=== PATIENT | female | born 1965 | race African-American/Black ===

== ENCOUNTER 2018-11-27 13:11 | Inpatient (IN) | payer OTHER ==
[2018-11-27 15:10] LABS: BASO % 0.6 % (0.0-2.0); EOS % 0.3 % (0.0-4.0); HEMOGLOBIN 14.7 g/dL (11.0-16.0); LYMPH # 1.6 K/uL (1.0-4.3); LYMPH % 27.1 % (20.0-40.0); MEAN CELL VOLUME 88.7 fL (81.0-99.0); MEAN CORPUSCULAR HEMOGLOBIN 30.3 pg (27.0-31.0); MEAN CORPUSCULAR HGB CONC 34.1 g/dL (33.0-37.0); MEAN PLATELET VOLUME 10.1 fL (7.2-11.7); MONO # 0.4 K/uL (0.0-0.8); MONO % 6.3 % (0.0-10.0); NEUT # 3.9 K/uL (1.8-7.0); NEUT % 65.7 % (50.0-75.0); RBC 4.84 Mil/uL (3.80-5.20); RED CELL DISTRIBUTION WIDTH 13.7 % (11.5-14.5); WHITE BLOOD COUNT 5.9 K/uL (4.8-10.8)
--- NOTE | 2018-11-27 15:18 | C.PDOC ---
History Of Present Illness 53 year old female presents to the emergency department status-post being diagnosed with hypothyroidism four days ago. Patient reports that recently she has been having shortness of breath, dyspnea on exertion, and paroxysmal nocturn al dyspnea which since onset has progressively worsened. Patient states that her hypothyroidism medication has not improved her symptoms. She states that she wakes up short of breath in the middle of the night feeling hot, having to turn off the heat and open the windows despite the weather being cold. Patient states that she has generalized weakness due to not being able to sleep at night, and feels aches in her muscles. She denies leg swelling, cough, fever, and recent travel. She states that she traveled to [facility] in May 2018, where she felt she got sick but recovered upon returning to the [facility]. Patient's PMD is Dr. Glen Diego, and the patient states that she is scheduled to see Dr. Jesus Manuel Landaverde (cardiology) on 12-09-18. Patient denies surgical history, tobacco, alcohol, and drug use. Patient reports a family history of hypertension. Time Seen by Provider: 11/27/18 14:06 Chief Complaint (Nursing): Palpitations History Per: Patient History/Exam Limitations: no limitations Onset/Duration Of Symptoms: Days (4) Current Symptoms Are (Timing): Worse Quality: Other (shortness of breath, dyspnea) Exacerbating Factors: Exertion Past Medical History Reviewed: Historical Data, Nursing Documentation, Vital Signs Vital Signs: Last Vital Signs Temp 97.7 F 11/27/18 13:18 Pulse 104 H 11/27/18 13:18 Resp 22 11/27/18 13:18 BP 123/78 11/27/18 13:18 Pulse Ox 100 11/27/18 13:18 - Medical History PMH: Hyperthyroidism Surgical History: No Surg Hx Family History: States: No Known Family Hx - Social History Hx Alcohol Use: No Hx Substance Use: No Review Of Systems Except As Marked, All Systems Reviewed And Found Negative. Constitutional: Positive for: Weakness. Negative for: Fever Cardiovascular: Positive for: Paroxysmal Noc. Dyspnea Respiratory: Positive for: Shortness of Breath, SOB with Excertion. Negative for: Cough Musculoskeletal: Negative for: Other (leg swelling) Physical Exam - Physical Exam Appears: Non-toxic, No Acute Distress Skin: Warm, Dry Head: Normacephalic, Tenderness Eye(s): bilateral: PERRL, EOMI Oral Mucosa: Moist Throat: No Erythema, No Exudate Neck: Normal ROM, Trachea Midline Lymphatic: No Adenopathy Chest: Symmetrical, No Tenderness Cardiovascular: Rhythm Regular, No Murmur Respiratory: Rales (at the bases), No Rhonchi, No Wheezing Gastrointestinal/Abdominal: Soft, No Tenderness Back: Normal Inspection, No Decreased ROM Extremity: Swelling (trace bilateral lower leg edema) Neurological/Psych: Oriented x3, Normal Motor ED Course And Treatment - Laboratory Results Result Diagrams: 11/27/18 14:59 11/27/18 14:59 ECG: Interpreted By Me, Viewed By Me ECG Rhythm: Sinus Rhythm, L BBB, ST/T Changes (appropriate t-wave distortion) O2 Sat by Pulse Oximetry: 100 (RA) Pulse Ox Interpretation: Normal Medical Decision Making Medical Decision Making: Plan: EKG Chemistry Hematology CXR Impression: Shortness of breath Differential: Heart failure, fluid overload, bronchitis. 15:55 Patient's bloodwork demonstates elevated Pro-BNP. Patient's X-ray demonstrates cardiomegaly and questionable infiltrate in the right lower lobe. Dr. Jesus Manuel Landaverde rim turning finisher advises Echo and Lasix for treatment of heart failure. Case discussed with Dr. Baum admitting for Dr. Glen Diego. Disposition Counseled Patient/Family Regarding: Studies Performed, Diagnosis - Disposition Disposition Time: 15:55 Condition: FAIR - Clinical Impression Clinical Impression: Heart failure - Scribe Statement The provider has reviewed the documentation as recorded by the Scribe (Saúl Nortonqvi) Provider Attestation: All medical record entries made by the Scribe were at my direction and personally dictated by me. I have reviewed the chart and agree that the record accurately reflects my personal performance of the history, physical exam, medical decision making, and the department course for this patient. I have also personally directed, reviewed, and agree with the discharge instructions and disposition.
[2018-11-27 15:22] LABS: ALB/GLOB RATIO 1.6 (1.0-2.1); ALBUMIN 4.3 g/dL (3.5-5.0); ALT/SGPT 110 U/L (9-52); AST/SGOT 74 U/L (14-36); BLOOD UREA NITROGEN 16 mg/dL (7-17); CALCIUM 9.4 mg/dl (8.6-10.4); GFR NON-AFRICAN AMERICAN > 60
--- NOTE | 2018-11-27 15:23 | RAD ---
Date of service: 11/27/2018 HISTORY: SOB COMPARISON: No prior. TECHNIQUE: Chest PA and lateral FINDINGS: LUNGS: Small patchy opacity at the right base just above the right hemidiaphragm. Nonspecific. Possible early pneumonia. Rule out neoplasm. Follow-up advised to clearing. PLEURA: No significant pleural effusion identified. No pneumothorax apparent. CARDIOVASCULAR: No aortic atherosclerotic calcification present. Normal cardiac size. No pulmonary vascular congestion. OSSEOUS STRUCTURES: No significant abnormalities. VISUALIZED UPPER ABDOMEN: Normal. OTHER FINDINGS: None. IMPRESSION: Small patchy opacity at right lung base. Possible early pneumonia. Rule out neoplasm. Follow-up to clearing advised.
[2018-11-27 15:25] LABS: PROTHROMBIN TIME 11.1 SECONDS (9.7-12.2)
[2018-11-27 15:33] LABS: B-TYPE NATRIURETIC PEPTIDE 10500 pg/mL (0-900)
--- NOTE | 2018-11-27 16:32 | CT ---
Date of service: 11/27/2018 PROCEDURE: CT Chest without contrast HISTORY: RIGHT sided pneumonia v neoplasm COMPARISON: None available. TECHNIQUE: Contiguous axial images were obtained through the chest without intravenous contrast enhancement. Sagittal and coronal reconstructions were performed. Radiation dose (DLP): 315.64 mGy-cm. This CT exam was performed using one or more of the following dose reduction techniques: Automated exposure control, adjustment of the mA and/or kV according to patient size, and/or use of iterative reconstruction technique. FINDINGS: LUNGS: Minimal subsegmental atelectasis in the right lower lobe, right middle lobe and lingula. Minimal dependent atelectasis posterior aspect right upper lobe. No infiltrate. No pulmonary mass. MEDIASTINUM: Unremarkable thoracic aorta. No aneurysm. Mild cardiomegaly. Trace pericardial effusion. Main pulmonary artery unremarkable. No vascular congestion. No lymphadenopathy. No aortic atherosclerotic calcification or mural plaque present. PLEURA: Bilateral mild pleural effusion, right greater than left. No pneumothorax BONES: No fracture. No destructive lesion. UPPER ABDOMEN: There is vague hazy increased density about the head and body of the pancreas which may reflect early acute pancreatitis. No peripancreatic fluid collection. No pancreatic mass appreciated on this noncontrast examination. No evidence of pancreatic ductal dilatation. Please correlate with clinical and laboratory evaluation. Trace ascites noted. OTHER FINDINGS: None. IMPRESSION: Multifocal mild subsegmental atelectasis. No acute infiltrate. Bilateral mild pleural effusion. Mild cardiomegaly and trace pericardial effusion. Possible early/mild acute pancreatitis of the head and body of the pancreas. Please correlate with clinical and laboratory evaluation. Trace ascites.
[2018-11-27 19:35] VITALS: RESP 20
[2018-11-28] MEDS: Levothyroxine 25 MCG TAB PO SCH (06:11)
[2018-11-28] MEDS: Enoxaparin 40 mg Syringe SC SCH (10:46)
[2018-11-28] MEDS: Metoprolol Succinate 12.5 mg XL Tab PO SCH (13:37)
[2018-11-28 14:38] LABS: TROPONIN I 0.012 ng/mL (0.00-0.120)
[2018-11-28 14:55] LABS: HEPATITIS B SURFACE AG Negative (NEGATIVE)
[2018-11-28 14:57] LABS: T3 1.84 nmol/L (1.49-2.60)
[2018-11-28 15:00] LABS: HEPATITIS A IGM NEGATIVE (NEGATIVE); HEPATITIS B CORE AB NEGATIVE (NEGATIVE)
[2018-11-28 15:12] LABS: HEPATITIS C ANTIBODY NEGATIVE (NEGATIVE)
--- NOTE | 2018-11-28 17:31 | CARD ---
APPROVED REPORT Date of service: 11/27/2018 EKG Measurement Heart [id number] <Conclusion> Normal sinus rhythm Left bundle branch block Abnormal ECG
--- NOTE | 2018-11-28 18:22 | CP.PCM.HP ---
Past Patient History - Past Medical History & Family History Past Medical History?: Yes - Past Social History Smoking Status: Never Smoked - ENDOCRINE/METABOLIC Hx Hyperthyroidism: Yes - MUSCULOSKELETAL/RHEUMATOLOGICAL Hx Falls: No - PSYCHIATRIC Hx Substance Use: No - SURGICAL HISTORY Hx Surgeries: No - ANESTHESIA Hx Anesthesia: No Meds Allergies/Adverse Reactions: Allergies Allergy/AdvReac Type Severity Reaction Status Date / Time No Known Allergies Allergy Unverified 11/27/18 13:23 Results - Vital Signs Recent Vital Signs: Last Vital Signs Temp 97.7 F 11/28/18 15:00 Pulse 89 11/28/18 15:00 Resp 20 11/28/18 15:00 BP 107/75 11/28/18 15:00 Pulse Ox 98 11/28/18 15:00 - Labs Result Diagrams: 11/27/18 14:59 11/27/18 14:59 Labs: Laboratory Results - last 24 hr 11/28/18 11/28/18 11/28/18 07:20 14:00 14:00 ESR Magnesium 2.1 Troponin I 0.0130 0.0120 Vitamin B12 792 Total T3 1.84 Hepatitis A IgM Ab Negative Hep Bs Antigen Negative Hep B Core IgM Ab Negative Hepatitis C Antibody Negative 11/28/18 14:00 ESR 2 Magnesium Troponin I Vitamin B12 Total T3 Hepatitis A IgM Ab Hep Bs Antigen Hep B Core IgM Ab Hepatitis C Antibody
--- NOTE | 2018-11-28 18:23 | CARD ---
APPROVED REPORT Date of service: 11/28/2018 EXAM: Two-dimensional and M-mode echocardiogram with Doppler and color Doppler. INDICATION Dyspnea Chest Pain weakness 2D DIMENSIONS IVSd0.5 (0.7-1.1cm)Aortic Root (2D)2.4 (2.0-3.7cm) LVDd7.6 (3.9-5.9cm)PWd0.6 (0.7-1.1cm) LA Wymfop41 (18-58mL)LVDs7.0 (2.5-4.0cm) FS (%) 7.8 %LVEF (%)16.7 (>50%) LVEF (St's)17 %IVC0.00 cm M-Mode DIMENSIONS RVDd2.21 (2.1-3.2cm)Left Atrium (MM)4.03 (2.5-4.0cm) IVSd0.52 (0.7-1.1cm)Aortic Root2.53 (2.2-3.7cm) LVDd7.56 (4.0-5.6cm)Aortic Cusp Exc.1.67 (1.5-2.0cm) PWd0.63 (0.7-1.1cm)FS (%) 8 % LVDs6.97 (2.0-3.8cm)TAPSE13.54 cm LVEF (%)17 (>50%) Mitral Valve MV E Rdlorwyx21.8cm/sMV A Uufcaqpx67.8cm/sE/A ratio1.3 TDI Lateral E' Peak V4.42cm/sMedial E' Peak V4.16cm/sE/Lateral E'21.4 E/Medial E'22.8 Tricuspid Valve TR Peak Shisgtui631gz/sTR Peak Gr.17qpXlRIBO17uvCt LEFT VENTRICLE The Left Ventricle is severely dilated. There is normal left ventricular wall thickness. The left ventricular ejection fraction is 12% The systolic function is severely impaired. THe septal, apical and inferior metzger are akinetic The left ventricular diastolic function is normal. No left ventricle thrombus noted on this study. There is no ventricular septal defect visualized. There is no left ventricular aneurysm. There is no mass noted in the left ventricle. RIGHT VENTRICLE The right ventricle is normal size. There is normal right ventricular wall thickness. The right ventricular systolic function is normal. ATRIA The left atrium size is normal. The right atrium size is normal. The interatrial septum is intact with no evidence for an atrial septal defect. AORTIC VALVE The aortic valve is normal in structure and function. No aortic regurgitation is present. There is no aortic valvular stenosis. There is no aortic valvular vegetation. MITRAL VALVE The mitral valve is normal in structure and function. There is no evidence of mitral valve prolapse. There is no mitral valve stenosis. There mild mitral valve regurgitation noted. TRICUSPID VALVE The tricuspid valve is normal in structure and function. There is mild tricuspid valve regurgitation noted. Estiamted PA systolic pressure is 30 mm Hg. There is no tricuspid valve prolapse or vegetation. There is no tricuspid valve stenosis. PULMONIC VALVE The pulmonary valve is normal in structure and function. There is no pulmonic valvular regurgitation. There is no pulmonic valvular stenosis. GREAT VESSELS The aortic root is normal in size. The ascending aorta is normal in size. The pulmonary artery is normal. The IVC is normal in size and collapses >50% with inspiration. PERICARDIAL EFFUSION A very small pericardail effusion is noted, mostly adjacent to the right atriu. There is collapse of the right atrial free wall in diastole. Mitral inflow was not assessed, but there was no respiratory variation in cardiac output A pleural effusion was noted. <Conclusion> The Left Ventricle is severely dilated. The left ventricular ejection fraction is 12% The systolic function is severely impaired. THe septal, apical and inferior metzger are akinetic There mild mitral valve regurgitation noted. A very small pericardail effusion is noted, mostly adjacent to the right atrium. There is collapse of the right atrial free wall in diastole. Mitral inflow was not assessed, but there was no respiratory variation in cardiac output
--- NOTE | 2018-11-28 20:55 | CON ---
DATE: 11/28/2018 CARDIOLOGY CONSULTATION HISTORY OF PRESENT ILLNESS: This is a 53-year-old [place] female who was brought in with a history of increasing shortness of breath going for two months. The patient was in usual state of health up until about four months ago when she visited [facility] and on the way back, she was experiencing some shortness of breath. About two months ago, she started to have increasing shortness of breath, now currently going from bed to bathroom, she was short of breath. About a couple of weeks ago, she was seen by primary doctor, Dr. Bailey Diego, and was found to be hypothyroid and was given levothyroxine 25 mcg p.o. once a day. She continued to have increasing shortness of breath, came to the emergency room and was subsequently admitted and was found to be in CHF. EKG had shown left bundle-branch block. PERSONAL HISTORY: Does not smoke. Does not drink. ALLERGIES: DENIED. FAMILY HISTORY: Mother had hypertension. REVIEW OF SYSTEMS: Generalized weakness. No fever. No chills. No cough. No hemoptysis. No hematemesis. No melena. Sleeps on two pillows. No PND. No edema. No urinary complaints. No arthritis. No TIAs. No CVAs. No history of depression. MEDICATIONS AT HOME: Synthroid. PHYSICAL EXAMINATION: GENERAL: Shows middle-aged [place] female who is conscious, alert, well oriented, in no acute distress. She is 5 feet, weighs 145 pounds. VITAL SIGNS: Blood pressure is 120/78, heart rate of 104, respiratory rate of 24, temperature of 97.7. HEENT: Head is normocephalic. Eyes: No pallor. No icterus. NECK: Supple. LUNGS: Clear to auscultation. HEART: Heart sounds are tachycardic and grade 1-2/6 systolic murmur in mitral area. No gallops. ABDOMEN: Soft. EXTREMITIES: Unremarkable. Distal pulses are intact. NEUROLOGIC: No focal signs. DIAGNOSTIC DATA: EKG showed sinus tachycardia and left bundle-branch block. Echocardiogram done this morning and the preliminary report shows the patient has dilated LA and LV; LA is 4.2 and LV is 7.5. Normal LV thickness. LVEF is about 15% to 20%. RV systolic function appears mildly reduced. ASSESSMENT: This is a 53-year-old female with a history of no previous medical problems, recently found to be hypothyroid as present with congestive heart failure. Overall picture is consistent with dilated cardiomyopathy. There is no history of drug or alcohol abuse. Probably viral myocarditis. RECOMMENDATIONS: JUSTUS inhibitors, small dose of beta blockers and diuretics. The patient needs full right and left heart catheterization. Care of plan was explained to the patient and the family. May need ICD biventricular pacing after catheterization and repeat consultation. Jesus Manuel Landaverde MD
[2018-11-29] MEDS: Levothyroxine 25 MCG TAB PO SCH (05:59)
[2018-11-29] MEDS: Metoprolol Succinate 12.5 mg XL Tab PO SCH (09:46)
[2018-11-29] MEDS: Enoxaparin 40 mg Syringe SC SCH (09:46)
--- NOTE | 2018-11-29 12:31 | CP.PCM.PN ---
Subjective - Date & Time of Evaluation Date of Evaluation: 11/29/18 Time of Evaluation: 12:30 - Subjective Subjective: sob is better. Objective - Vital Signs/Intake and Output Vital Signs (last 24 hours): Temp Pulse Resp BP Pulse Ox 97.4 F L 79 20 105/74 99 11/29/18 08:00 11/29/18 08:00 11/29/18 08:00 11/29/18 09:46 11/29/18 08:00 - Medications Medications: Current Medications Aspirin (Ecotrin) 81 mg PO DAILY [facility] Last Admin: 11/29/18 09:46 Dose: 81 mg Enoxaparin Sodium (Lovenox) 40 mg SC DAILY [facility] Last Admin: 11/29/18 09:46 Dose: 40 mg Furosemide (Lasix) 20 mg IVP Q12 [facility] Last Admin: 11/29/18 09:46 Dose: 20 mg Levothyroxine Sodium (Synthroid) 25 mcg PO DAILY@0630 [facility] Last Admin: 11/29/18 05:59 Dose: 25 mcg Metoprolol Succinate (Toprol Xl) 12.5 mg PO DAILY [facility] Last Admin: 11/29/18 09:46 Dose: 12.5 mg - Labs Labs: 11/27/18 14:59 11/27/18 14:59 PT 11.1 SECONDS (9.7-12.2) 11/27/18 14:59 INR 1.0 11/27/18 14:59 APTT 29 SECONDS (21-34) 11/27/18 14:59 - Constitutional Appears: No Acute Distress - Head Exam Head Exam: NORMOCEPHALIC - Neck Exam Neck Exam: Normal Inspection - Respiratory Exam Respiratory Exam: Clear to Ausculation Bilateral - Cardiovascular Exam Cardiovascular Exam: REGULAR RHYTHM, Murmur - GI/Abdominal Exam GI & Abdominal Exam: Soft - Extremities Exam Extremities Exam: absent: Pedal Edema - Neurological Exam Neurological Exam: Alert, Oriented x3 Assessment and Plan - Assessment and Plan (Free Text) Plan: cardiomyopathy,will get id consult.needs cath.,probably biventriculat pacing with lbbb.
[2018-11-29 14:02] LABS: BLOOD UREA NITROGEN 20 mg/dL (7-17); CALCIUM 9.3 mg/dl (8.6-10.4); GFR NON-AFRICAN AMERICAN 52
--- NOTE | 2018-11-29 16:46 | CP.PCM.PN ---
Subjective - Date & Time of Evaluation Date of Evaluation: 11/29/18 Time of Evaluation: 16:46 Objective - Vital Signs/Intake and Output Vital Signs (last 24 hours): Temp Pulse Resp BP Pulse Ox 97.4 F L 108 H 20 113/76 99 11/29/18 08:00 11/29/18 13:05 11/29/18 08:00 11/29/18 13:05 11/29/18 08:00 - Medications Medications: Current Medications Aspirin (Ecotrin) 81 mg PO DAILY [facility] Last Admin: 11/29/18 09:46 Dose: 81 mg Enoxaparin Sodium (Lovenox) 40 mg SC DAILY [facility] Last Admin: 11/29/18 09:46 Dose: 40 mg Furosemide (Lasix) 20 mg IVP Q12 [facility] Last Admin: 11/29/18 09:46 Dose: 20 mg Levothyroxine Sodium (Synthroid) 25 mcg PO DAILY@0630 [facility] Last Admin: 11/29/18 05:59 Dose: 25 mcg Lisinopril (Zestril) 5 mg PO DAILY [facility] Last Admin: 11/29/18 13:04 Dose: 5 mg Metoprolol Succinate (Toprol Xl) 12.5 mg PO DAILY [facility] Last Admin: 11/29/18 09:46 Dose: 12.5 mg - Labs Labs: 11/27/18 14:59 11/29/18 13:36 PT 11.1 SECONDS (9.7-12.2) 11/27/18 14:59 INR 1.0 11/27/18 14:59 APTT 29 SECONDS (21-34) 11/27/18 14:59
--- NOTE | 2018-11-29 22:29 | CP.PCM.CON ---
History of Present Illness - History of Present Illness History of Present Illness: Reason For Consultation: Cardiac Cath evaluation CC: Dyspnea, Acute systolic CHF 53 year old female presents to the emergency department status-post being diagnosed with hypothyroidism four days ago. Patient reports that recently she has been having shortness of breath, dyspnea on exertion, and paroxysmal n octurnal dyspnea which since onset has progressively worsened. Patient states that her hypothyroidism medication has not improved her symptoms. She states that she wakes up short of breath in the middle of the night feeling hot, having to turn off the heat and open the windows despite the weather being cold. Patient states that she has generalized weakness due to not being able to sleep at night, and feels aches in her muscles. She denies leg swelling, cough, fever, and recent travel. She states that she traveled to [facility] in May 2018, where she felt she got sick but recovered upon returning to the [facility]. 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 Jesus Manuel Landaverde Past Medical History Reviewed: Historical Data, Nursing Documentation, Vital Signs Vital Signs: Last Vital Signs Temp 97.7 F 11/27/18 13:18 Pulse 104 H 11/27/18 13:18 Resp 22 11/27/18 13:18 BP 123/78 11/27/18 13:18 Pulse Ox 100 11/27/18 13:18 - Medical History PMH: Hyperthyroidism Surgical History: No Surg Hx Family History: States: No Known Family Hx - Social History Hx Alcohol Use: No Hx Substance Use: No Review Of Systems Except As Marked, All Systems Reviewed And Found Negative. Constitutional: Positive for: Weakness. Negative for: Fever Cardiovascular: Positive for: Paroxysmal Noc. Dyspnea Respiratory: Positive for: Shortness of Breath, SOB with Excertion. Negative for: Cough Musculoskeletal: Negative for: Other (leg swelling) Physical Exam - Physical Exam Appears: Non-toxic, No Acute Distress Skin: Warm, Dry Head: Normacephalic, Tenderness Eye(s): bilateral: PERRL, EOMI Oral Mucosa: Moist Throat: No Erythema, No Exudate Neck: Normal ROM, Trachea Midline Lymphatic: No Adenopathy Chest: Symmetrical, No Tenderness Cardiovascular: Rhythm Regular, No Murmur Respiratory: Rales (at the bases), No Rhonchi, No Wheezing Gastrointestinal/Abdominal: Soft, No Tenderness Back: Normal Inspection, No Decreased ROM Extremity: Swelling (trace bilateral lower leg edema) Neurological/Psych: Oriented x3, Normal Motor Past Patient History - Past Medical History & Family History Past Medical History?: Yes - Past Social History Smoking Status: Never Smoked - ENDOCRINE/METABOLIC Hx Hyperthyroidism: Yes - MUSCULOSKELETAL/RHEUMATOLOGICAL Hx Falls: No - PSYCHIATRIC Hx Substance Use: No - SURGICAL HISTORY Hx Surgeries: No - ANESTHESIA Hx Anesthesia: No Meds Allergies/Adverse Reactions: Allergies Allergy/AdvReac Type Severity Reaction Status Date / Time No Known Allergies Allergy Unverified 11/27/18 13:23 - Medications Medications: Current Medications Aspirin (Ecotrin) 81 mg PO DAILY [facility] Last Admin: 11/29/18 09:46 Dose: 81 mg Enoxaparin Sodium (Lovenox) 40 mg SC DAILY [facility] Last Admin: 11/29/18 09:46 Dose: 40 mg Furosemide (Lasix) 20 mg IVP Q12 [facility] Last Admin: 11/29/18 09:46 Dose: 20 mg Levothyroxine Sodium (Synthroid) 25 mcg PO DAILY@0630 [facility] Last Admin: 11/29/18 05:59 Dose: 25 mcg Lisinopril (Zestril) 5 mg PO DAILY [facility] Last Admin: 11/29/18 13:04 Dose: 5 mg Metoprolol Succinate (Toprol Xl) 12.5 mg PO DAILY [facility] Last Admin: 11/29/18 09:46 Dose: 12.5 mg Results - Vital Signs Recent Vital Signs: Last Vital Signs Temp 98.0 F 11/29/18 15:15 Pulse 86 11/29/18 17:47 Resp 20 11/29/18 15:15 BP 104/73 11/29/18 15:15 Pulse Ox 98 11/29/18 15:15 - Labs Result Diagrams: 11/27/18 14:59 11/29/18 13:36 Labs: Laboratory Results - last 24 hr 11/29/18 13:36 Sodium 137 Potassium 3.8 Chloride 99 Carbon Dioxide 29 Anion Gap 13 BUN 20 H Creatinine 1.1 Est GFR ( Amer) > 60 Est GFR (Non-Af Amer) 52 Random Glucose 141 H D Calcium 9.3 Assessment & Plan - Assessment and Plan (Free Text) Assessment: Acute Systolic CHF Hypothyroidism CHF management as per Dr. Jesus Manuel Landaverde Patient scheduled for Cardiac cath on Saturday 5pm NPO after Lunch (Before 12 noon) on Saturday D/W patient who agreed for the procedure
[2018-11-30] MEDS: Levothyroxine 25 MCG TAB PO SCH (06:16)
[2018-11-30 08:18] LABS: HDL CHOLESTEROL 46 mg/dL (30-70)
[2018-11-30 08:28] LABS: LDL CHOLESTEROL 131 mg/dL (0-129)
[2018-11-30] MEDS: Metoprolol Succinate 12.5 mg XL Tab PO SCH (09:54)
[2018-11-30] MEDS: Enoxaparin 40 mg Syringe SC SCH (09:54)
--- NOTE | 2018-11-30 15:05 | CP.PCM.CON ---
History of Present Illness - History of Present Illness History of Present Illness: 53 year old female presents to the emergency department with progressive shortness of breath, dyspnea on exertion, and paroxysmal nocturnal dyspnea which since onset has progressively worsened She states that she traveled to [facility] i May 2018, where she felt she got sick but recovered upon returning to the [facility]. She was found to have nonischemic cardiomyopathy and work up/ rx is planned which may include left heart CATH WELL PLACEMENT OF AICD ID CONSULTED PATIENT DENIES FEVER , CHILLS CULTURES HAVE BEEN SENT Review of Systems - Review of Systems All systems: reviewed and no additional remarkable complaints except - Constitutional Constitutional: As Per HPI, Malaise. absent: Chills, Fever - EENT Eyes: absent: As Per HPI, Blind Spots, Blurred Vision, Change in Vision, Decreased Night Vision, Diplopia, Discharge, Dry Eye, Exophthalmos, Floaters, Irritation, Itchy Eyes, Loss of Peripheral Vision, Pain, Photophobia, Requires Corrective Lenses, Sees Flashes, Spots in Vision, Tunnel Vision, Other Visual Disturbances, Loss of Vision, Other Ears: absent: As Per HPI, Decreased Hearing, Ear Discharge, Ear Pain, Tinnitus, Abnormal Hearing, Disequilibrium, Dizziness, Other Nose/Mouth/Throat: absent: As Per HPI, Epistaxis, Nasal Congestion, Nasal Discharge, Nasal Obstruction, Nasal Trauma, Nose Pain, Post Nasal Drip, Sinus Pain, Sinus Pressure, Bleeding Gums, Change in Voice, Dental Pain, Dry Mouth, Dysphagia, Halitosis, Hoarsness, Lip Swelling, Mouth Lesions, Mouth Pain, Odynophagia, Sore Throat, Throat Swelling, Tongue Swelling, Facial Pain, Neck Pain, Neck Mass, Other - Breasts Breasts: absent: As Per HPI, Change in Shape, Mass, Pain, Nipple Discharge, Nipple Inversion, Skin Changes, Swelling, Other - Cardiovascular Cardiovascular: As Per HPI - Respiratory Respiratory: As Per HPI, Dyspnea, Dyspnea on Exertion. absent: Hemoptysis - Gastrointestinal Gastrointestinal: absent: As Per HPI, Abdominal Pain, Belching, Bloating, Change in Bowel Habits, Change in Stool Character, Coffee Ground Emesis, Constipation, Cramping, Diarrhea, Dyspepsia, Dysphagia, Early Satiety, Excessive Flatus, Fecal Incontinence, Heartburn, Hematemesis, Hematochezia, Loose Stools, Melena, Nausea, Odynophagia, Temesmus, Vomiting, Other - Genitourinary Genitourinary: absent: As Per HPI, Change in Urinary Stream, Difficulty Urinating, Dysuria, Flank Pain, Hematuria, Pyuria, Nocturia, Urinary Incontinence, Urinary Frequency, Urinary Hesitance, Urinary Urgency, Voiding Freq/Small Amts, Freq UTI, Hx Renal/Bladder Calculi, Hx /Renal Surgery, Bladder Distension, Other - Reproductive: Female Reproductive:Female: absent: As Per HPI, Amenorrhea, Amenorrhea/ Control, Currently Menstual, Cycle <21 Days, Cycle >35 Days, Cycle Variable, Menses 1-7 Days, Menses >/= 8 Days, Menses Variable, Cycle > 4 Weeks Between, No Menses for 6 Months, Heavy Menses, Light Menses, Normal Menses, Spotting Between Cycles, S/P Hysterectomy, Menopausal, Post Menopausal, Premenarche, Abnormal Vaginal Bleeding, Dysmenorrhea, Dyspareunia, Genital Lesions, Genital Pruritis, Pelvic Pain, Prolapse Symptoms, Sexual Dysfunction, Vaginal Discharge, Vaginal Dryness, Vaginal Odor, Vaginal Pruritis, Other - Menstruation Menstruation: absent: As Per HPI, Amenorrhea, Amenorrhea/ Control, Currently Menstual, Cycle <21 Days, Cycle >35 Days, Cycle Variable, Menses 1-7 Days, Menses >/= 8 Days, Menses Variable, Cycle > 4 Weeks Between, No Menses for 6 Months, Heavy Menses, Light Menses, Normal Menses, Spotting Between Cycles, S/P Hysterectomy, Menopausal, Post Menopausal, Premenarche, Abnormal Vaginal Bleeding, Dysmenorrhea, Other - Musculoskeletal Musculoskeletal: absent: As Per HPI, Abnormal Gait, Arthralgias, Atrophy, Back Pain, Deformity, Joint Swelling, Limited Range of Motion, Loss of Height, Muscle Cramps, Muscle Weakness, Myalgias, Neck Pain, Numbness, Radiating Pain into Limb, Stiffness, Tingling, Other - Integumentary Integumentary: absent: As Per HPI, Acne, Alopecia, Bleeding Lesions, Change in Hair, Change in Nails, Change in Pigmentation, Changing Lesions, Dry Skin, Erythema, Furuncle, Hirsutism, Lesions, New Lesions, Non-Healing Lesions, Photosensitivity, Pruritus, Rash, Skin Pain, Skin Ulcer, Sores, Striae, Swelling, Unusual Bruising, Wounds, Jaundice, Other - Neurological Neurological: absent: As Per HPI, Abnormal Gait, Abnormal Hearing, Abnormal Movements, Abnormal Speech, Behavioral Changes, Burning Sensations, Confusion, Convulsions, Disequilibrium, Dizziness, Numbness, Focal Weakness, Frequent Falls, Headaches, Lack of Coordination, Loss of Vision, Memory Loss, Paresthesias, Radicular Pain, Restless Legs, Sensory Deficit, Syncope, Tingling, Tremor, Vertigo, Weakness, Other Visual Disturbances, Other - Psychiatric Psychiatric: absent: As Per HPI, Abnormal Sleep Pattern, Anhedonia, Anxiety, Auditory Hallucinations, Behavioral Changes, Change in Appetite, Change in Libido, Confusion, Depression, Difficulty Concentrating, Hallucinations, Homicidal Ideation, Hopelessness, Irritability, Memory Loss, Mood Swings, Panic Attacks, Paranoia, Suicidal Ideation, Visual Hallucinations, Tactile Hallucinations, Other - Endocrine Endocrine: absent: As Per HPI, Change in Body Appearance, Change in Libido, Cold Intolorance, Deepening of Voice, Excessive Sweating, Fatigue, Flushing, Heat Intolorance, Increase in Ring/Shoe/Hat Size, Palpitations, Polydipsia, Polyphagia, Polyuria, Other - Hematologic/Lymphatic Hematologic: absent: As Per HPI, Easy Bleeding, Easy Bruising, Lymphadenopathy, Other Past Patient History - Past Medical History & Family History Past Medical History?: Yes - Past Social History Smoking Status: Never Smoked - ENDOCRINE/METABOLIC Hx Hyperthyroidism: Yes - MUSCULOSKELETAL/RHEUMATOLOGICAL Hx Falls: No - PSYCHIATRIC Hx Substance Use: No - SURGICAL HISTORY Hx Surgeries: No - ANESTHESIA Hx Anesthesia: No Meds Allergies/Adverse Reactions: Allergies Allergy/AdvReac Type Severity Reaction Status Date / Time No Known Allergies Allergy Unverified 11/27/18 13:23 - Medications Medications: Current Medications Aspirin (Ecotrin) 81 mg PO DAILY [facility] Last Admin: 11/30/18 09:54 Dose: 81 mg Enoxaparin Sodium (Lovenox) 40 mg SC DAILY [facility] Last Admin: 11/30/18 09:54 Dose: 40 mg Furosemide (Lasix) 20 mg IVP Q12 [facility] Last Admin: 11/30/18 09:54 Dose: Not Given Levothyroxine Sodium (Synthroid) 25 mcg PO DAILY@0630 [facility] Last Admin: 11/30/18 06:16 Dose: 25 mcg Lisinopril (Zestril) 5 mg PO DAILY [facility] Last Admin: 11/30/18 09:54 Dose: Not Given Metoprolol Succinate (Toprol Xl) 12.5 mg PO DAILY [facility] Last Admin: 11/30/18 09:54 Dose: Not Given Physical Exam - Constitutional Appears: Non-toxic, Cachectic, Chronically Ill - Head Exam Head Exam: ATRAUMATIC, NORMOCEPHALIC - Eye Exam Eye Exam: PERRL. absent: Scleral icterus - ENT Exam ENT Exam: Mucous Membranes Dry - Neck Exam Neck exam: Negative for: Lymphadenopathy - Respiratory Exam Respiratory Exam: Decreased Breath Sounds, Clear to Auscultation Bilateral - Cardiovascular Exam Cardiovascular Exam: REGULAR RHYTHM, +S1, +S2 - GI/Abdominal Exam GI & Abdominal Exam: Diminished Bowel Sounds, Soft. absent: Tenderness - Rectal Exam Rectal Exam: Deferred - Exam Exam: NORMAL INSPECTION - Extremities Exam Extremities exam: Positive for: pedal pulses present. Negative for: calf tenderness, pedal edema, tenderness - Back Exam Back exam: absent: CVA tenderness (L), CVA tenderness (R) - Neurological Exam Neurological exam: Alert, CN II-XII Intact, Oriented x3, Reflexes Normal - Psychiatric Exam Psychiatric exam: Depressed - Skin Skin Exam: Dry Results - Vital Signs Recent Vital Signs: Last Vital Signs Temp 98.2 F 11/30/18 08:57 Pulse 86 11/30/18 11:08 Resp 20 11/30/18 08:57 BP 93/64 L 11/30/18 11:08 Pulse Ox 99 11/30/18 08:57 - Labs Result Diagrams: 11/27/18 14:59 11/29/18 13:36 Labs: Laboratory Results - last 24 hr 11/30/18 11/30/18 11/30/18 07:50 07:50 07:50 C-React Prot High Sens 1.16 Triglycerides 123 Cholesterol 190 LDL Cholesterol Direct 131 H HDL Cholesterol 46 HIV 1&2 Antibody Screen Infectious [place] Assay Negative 11/30/18 07:50 C-React Prot High Sens Triglycerides Cholesterol LDL Cholesterol Direct HDL Cholesterol HIV 1&2 Antibody Screen Negative Infectious [place] Assay Assessment & Plan (1) Heart failure Status: Acute (2) Cardiomyopathy Status: Acute - Assessment and Plan (Free Text) Assessment: REMOTE HX OF ILLNESS AFTER TRAVEL TO [facility] NO [place] INFECTION AT THIS TIME WILL SCREEN FOR COMMON VIRUSES AND SEND BLOOD CULTURES
--- NOTE | 2018-11-30 15:47 | CP.PCM.PN ---
Subjective - Date & Time of Evaluation Date of Evaluation: 11/30/18 Time of Evaluation: 15:47 Objective - Vital Signs/Intake and Output Vital Signs (last 24 hours): Temp Pulse Resp BP Pulse Ox 98.2 F 86 20 93/64 L 99 11/30/18 08:57 11/30/18 11:08 11/30/18 08:57 11/30/18 11:08 11/30/18 08:57 - Medications Medications: Current Medications Aspirin (Ecotrin) 81 mg PO DAILY [facility] Last Admin: 11/30/18 09:54 Dose: 81 mg Enoxaparin Sodium (Lovenox) 40 mg SC DAILY [facility] Last Admin: 11/30/18 09:54 Dose: 40 mg Furosemide (Lasix) 20 mg IVP Q12 [facility] Last Admin: 11/30/18 09:54 Dose: Not Given Levothyroxine Sodium (Synthroid) 25 mcg PO DAILY@0630 [facility] Last Admin: 11/30/18 06:16 Dose: 25 mcg Lisinopril (Zestril) 5 mg PO DAILY [facility] Last Admin: 11/30/18 09:54 Dose: Not Given Metoprolol Succinate (Toprol Xl) 12.5 mg PO DAILY [facility] Last Admin: 11/30/18 09:54 Dose: Not Given - Labs Labs: 11/27/18 14:59 11/29/18 13:36 PT 11.1 SECONDS (9.7-12.2) 11/27/18 14:59 INR 1.0 11/27/18 14:59 APTT 29 SECONDS (21-34) 11/27/18 14:59
[2018-11-30 17:55] LABS: RAPID PLASMA REAGIN NONREACTIVE (NONREACTIVE)
--- NOTE | 2018-11-30 19:09 | CP.PCM.PN ---
Subjective - Date & Time of Evaluation Date of Evaluation: 11/30/18 Time of Evaluation: 10:30 - Subjective Subjective: Patient with no additional cardiac events For Cath at 5pm tomorrow Consult Dr. Morales for AICD evaluation NPO after Lunch tomorrow for cardiac cath Objective - Vital Signs/Intake and Output Vital Signs (last 24 hours): Temp Pulse Resp BP Pulse Ox 98.1 F 74 20 103/69 98 11/30/18 15:00 11/30/18 15:00 11/30/18 15:00 11/30/18 15:00 11/30/18 15:00 - Medications Medications: Current Medications Aspirin (Ecotrin) 81 mg PO DAILY [facility] Last Admin: 11/30/18 09:54 Dose: 81 mg Enoxaparin Sodium (Lovenox) 40 mg SC DAILY [facility] Last Admin: 11/30/18 09:54 Dose: 40 mg Furosemide (Lasix) 20 mg IVP Q12 [facility] Last Admin: 11/30/18 09:54 Dose: Not Given Levothyroxine Sodium (Synthroid) 25 mcg PO DAILY@0630 [facility] Last Admin: 11/30/18 06:16 Dose: 25 mcg Lisinopril (Zestril) 5 mg PO DAILY [facility] Last Admin: 11/30/18 09:54 Dose: Not Given Metoprolol Succinate (Toprol Xl) 12.5 mg PO DAILY [facility] Last Admin: 11/30/18 09:54 Dose: Not Given - Labs Labs: 11/27/18 14:59 11/29/18 13:36 PT 11.1 SECONDS (9.7-12.2) 11/27/18 14:59 INR 1.0 11/27/18 14:59 APTT 29 SECONDS (21-34) 11/27/18 14:59
[2018-12-01] MEDS: Levothyroxine 25 MCG TAB PO SCH (06:15)
[2018-12-01 07:00] LABS: BLOOD UREA NITROGEN 20 mg/dL (7-17); CALCIUM 9.1 mg/dl (8.6-10.4); GFR NON-AFRICAN AMERICAN > 60
[2018-12-01 07:08] LABS: HEMOGLOBIN 15.6 g/dL (11.0-16.0); MEAN CELL VOLUME 89.5 fL (81.0-99.0); MEAN CORPUSCULAR HEMOGLOBIN 30.1 pg (27.0-31.0); MEAN CORPUSCULAR HGB CONC 33.7 g/dL (33.0-37.0); MEAN PLATELET VOLUME 9.9 fL (7.2-11.7); RBC 5.17 Mil/uL (3.80-5.20); RED CELL DISTRIBUTION WIDTH 14.1 % (11.5-14.5); WHITE BLOOD COUNT 4.8 K/uL (4.8-10.8)
[2018-12-01 07:09] LABS: PROTHROMBIN TIME 10.9 SECONDS (9.7-12.2)
[2018-12-01] MEDS: Metoprolol Succinate 12.5 mg XL Tab PO SCH (09:13)
[2018-12-01] MEDS: Enoxaparin 40 mg Syringe SC SCH (09:13)
--- NOTE | 2018-12-01 11:18 | CP.PCM.PN ---
Subjective - Date & Time of Evaluation Date of Evaluation: 12/01/18 Time of Evaluation: 10:00 - Subjective Subjective: denies chest pain fever or SOB + PRICE debilitated but NAD Objective - Vital Signs/Intake and Output Vital Signs (last 24 hours): Temp Pulse Resp BP Pulse Ox 97.5 F L 71 20 98/63 L 100 12/01/18 07:05 12/01/18 07:05 12/01/18 07:05 12/01/18 09:12 12/01/18 07:05 Intake and Output: 12/01/18 12/01/18 06:59 18:59 Intake Total 300 Balance 300 - Medications Medications: Current Medications Aspirin (Ecotrin) 81 mg PO DAILY [facility] Last Admin: 12/01/18 09:13 Dose: 81 mg Enoxaparin Sodium (Lovenox) 40 mg SC DAILY [facility] Last Admin: 12/01/18 09:13 Dose: Not Given Furosemide (Lasix) 20 mg IVP DAILY [facility] Last Admin: 12/01/18 09:13 Dose: Not Given Levothyroxine Sodium (Synthroid) 25 mcg PO DAILY@0630 [facility] Last Admin: 12/01/18 06:15 Dose: 25 mcg Lisinopril (Zestril) 2.5 mg PO DAILY [facility] Metoprolol Succinate (Toprol Xl) 12.5 mg PO DAILY [facility] Last Admin: 12/01/18 09:13 Dose: Not Given - Labs Labs: 12/01/18 06:43 12/01/18 06:43 PT 10.9 SECONDS (9.7-12.2) 12/01/18 06:43 INR 1.0 12/01/18 06:43 APTT 29 SECONDS (21-34) 11/27/18 14:59 - Constitutional Appears: Non-toxic, Chronically Ill - Head Exam Head Exam: NORMOCEPHALIC - Eye Exam Eye Exam: absent: Scleral icterus - ENT Exam ENT Exam: Mucous Membranes Dry - Neck Exam Neck Exam: absent: Lymphadenopathy - Respiratory Exam Respiratory Exam: Decreased Breath Sounds, Rales - Cardiovascular Exam Cardiovascular Exam: REGULAR RHYTHM - GI/Abdominal Exam GI & Abdominal Exam: Distended, Soft - Rectal Exam Rectal Exam: Deferred - Exam Exam: NORMAL INSPECTION - Extremities Exam Extremities Exam: Full ROM. absent: Pedal Edema, Tenderness - Back Exam Back Exam: Full ROM. absent: CVA tenderness (L), CVA tenderness (R), paraspinal tenderness - Neurological Exam Neurological Exam: Alert, Awake, CN II-XII Intact, Oriented x3 Neuro motor strength exam: Left Upper Extremity: 5, Right Upper Extremity: 5, Left Lower Extremity: 5, Right Lower Extremity: 5 - Psychiatric Exam Psychiatric exam: Depressed - Skin Skin Exam: Dry Assessment and Plan (1) Heart failure Status: Acute (2) Cardiomyopathy Status: Acute - Assessment and Plan (Free Text) Assessment: all cultures, serologies negative for cardiac cath and AICD eval
--- NOTE | 2018-12-01 13:46 | CP.PCM.PN ---
Subjective - Date & Time of Evaluation Date of Evaluation: 12/01/18 Time of Evaluation: 13:45 - Subjective Subjective: sob is better.seen by dr obrien & dr [email or web address].cath today.ep on board. Objective - Vital Signs/Intake and Output Vital Signs (last 24 hours): Temp Pulse Resp BP Pulse Ox 97.5 F L 71 20 98/63 L 100 12/01/18 07:05 12/01/18 07:05 12/01/18 07:05 12/01/18 09:12 12/01/18 07:05 Intake and Output: 12/01/18 12/01/18 06:59 18:59 Intake Total 300 Balance 300 - Medications Medications: Current Medications Aspirin (Ecotrin) 81 mg PO DAILY [facility] Last Admin: 12/01/18 09:13 Dose: 81 mg Enoxaparin Sodium (Lovenox) 40 mg SC DAILY [facility] Last Admin: 12/01/18 09:13 Dose: Not Given Furosemide (Lasix) 20 mg IVP DAILY [facility] Last Admin: 12/01/18 09:13 Dose: Not Given Levothyroxine Sodium (Synthroid) 25 mcg PO DAILY@0630 [facility] Last Admin: 12/01/18 06:15 Dose: 25 mcg Lisinopril (Zestril) 2.5 mg PO DAILY [facility] Metoprolol Succinate (Toprol Xl) 12.5 mg PO DAILY [facility] Last Admin: 12/01/18 09:13 Dose: Not Given - Labs Labs: 12/01/18 06:43 12/01/18 06:43 PT 10.9 SECONDS (9.7-12.2) 12/01/18 06:43 INR 1.0 12/01/18 06:43 APTT 29 SECONDS (21-34) 11/27/18 14:59 - Constitutional Appears: No Acute Distress - Head Exam Head Exam: NORMOCEPHALIC - Neck Exam Neck Exam: Normal Inspection - Respiratory Exam Respiratory Exam: Clear to Ausculation Bilateral - GI/Abdominal Exam GI & Abdominal Exam: Soft - Extremities Exam Extremities Exam: absent: Pedal Edema - Neurological Exam Neurological Exam: Alert, Oriented x3 Assessment and Plan - Assessment and Plan (Free Text) Plan: cardiomyopathy.
[2018-12-01] MEDS ORDERED: Iohexol 350mg/ml 100 ML ONE (16:52)
[2018-12-01] MEDS ORDERED: Verapamil 2 ML ONE (16:53)
--- NOTE | 2018-12-01 17:54 | CP.PCM.PN ---
Subjective - Date & Time of Evaluation Date of Evaluation: 12/01/18 Time of Evaluation: 17:54 Objective - Vital Signs/Intake and Output Vital Signs (last 24 hours): Temp Pulse Resp BP Pulse Ox 97.9 F 81 20 104/74 98 12/01/18 15:05 12/01/18 16:00 12/01/18 15:05 12/01/18 15:05 12/01/18 15:05 Intake and Output: 12/01/18 12/01/18 06:59 18:59 Intake Total 300 Balance 300 - Medications Medications: Current Medications Aspirin (Ecotrin) 81 mg PO DAILY [facility] Last Admin: 12/01/18 09:13 Dose: 81 mg Enoxaparin Sodium (Lovenox) 40 mg SC DAILY [facility] Last Admin: 12/01/18 09:13 Dose: Not Given Furosemide (Lasix) 20 mg IVP DAILY [facility] Last Admin: 12/01/18 09:13 Dose: Not Given Levothyroxine Sodium (Synthroid) 25 mcg PO DAILY@0630 [facility] Last Admin: 12/01/18 06:15 Dose: 25 mcg Lisinopril (Zestril) 2.5 mg PO DAILY [facility] Metoprolol Succinate (Toprol Xl) 12.5 mg PO DAILY [facility] Last Admin: 12/01/18 09:13 Dose: Not Given - Labs Labs: 12/01/18 06:43 12/01/18 06:43 PT 10.9 SECONDS (9.7-12.2) 12/01/18 06:43 INR 1.0 12/01/18 06:43 APTT 29 SECONDS (21-34) 11/27/18 14:59
[2018-12-01] MEDS ORDERED: Midazolam 2 MG/2 ML VIAL ONE (18:07)
[2018-12-01] MEDS ORDERED: DiphenhydrAMINE 50 mg/ml Inj IVP STA (18:31)
--- NOTE | 2018-12-01 19:02 | CP.PCM.PN ---
Subjective - Date & Time of Evaluation Date of Evaluation: 12/01/18 Time of Evaluation: 18:59 - Subjective Subjective: Patient s/p Cardiac cath Right radial approach patient tolerated the procedure well 1. Normal Coronaries 2. Dilated Non ischemic CMP with EF of 20%, EDP 28, No AV gradient Further cardiac management as per Primary [employer] Dr. Jesus Manuel Landaverde Thank you Objective - Vital Signs/Intake and Output Vital Signs (last 24 hours): Temp Pulse Resp BP Pulse Ox 97.9 F 81 20 104/74 98 12/01/18 15:05 12/01/18 16:00 12/01/18 15:05 12/01/18 15:05 12/01/18 15:05 Intake and Output: 12/01/18 12/01/18 06:59 18:59 Intake Total 300 Balance 300 - Medications Medications: Current Medications Aspirin (Ecotrin) 81 mg PO DAILY [facility] Last Admin: 12/01/18 09:13 Dose: 81 mg Diphenhydramine HCl (Benadryl) 50 mg IVP STAT STA Stop: 12/01/18 18:32 Enoxaparin Sodium (Lovenox) 40 mg SC DAILY [facility] Last Admin: 12/01/18 09:13 Dose: Not Given Furosemide (Lasix) 20 mg IVP DAILY [facility] Last Admin: 12/01/18 09:13 Dose: Not Given Levothyroxine Sodium (Synthroid) 25 mcg PO DAILY@0630 [facility] Last Admin: 12/01/18 06:15 Dose: 25 mcg Lisinopril (Zestril) 2.5 mg PO DAILY [facility] Metoprolol Succinate (Toprol Xl) 12.5 mg PO DAILY [facility] Last Admin: 12/01/18 09:13 Dose: Not Given - Labs Labs: 12/01/18 06:43 12/01/18 06:43 PT 10.9 SECONDS (9.7-12.2) 12/01/18 06:43 INR 1.0 12/01/18 06:43 APTT 29 SECONDS (21-34) 11/27/18 14:59
--- NOTE | 2018-12-02 06:11 | CARDCATH ---
PROCEDURE DATE: 12/01/2018 PROCEDURES: 1. Left heart catheterization. 2. Coronary angiogram. CLINICAL INDICATIONS: 1. Dyspnea on minimal exertion. 2. Acute systolic congestive heart failure. 3. Hypotension. REFERRING PHYSICIAN: Jesus Manuel Landaverde MD PERFORMING PHYSICIAN: Kam Moore MD DESCRIPTION OF PROCEDURE: After informed consent, the patient was prepped and draped in the usual sterile fashion. A 2% lidocaine was given in the right wrist for local anesthesia. Using micropuncture technique, 6-Cambodian sheath was introduced into right radial artery. A JR4 6-Cambodian diagnostic catheter was engaged into right coronary artery. Contrast injected, and right coronary angiogram was done. Then, the catheter was exchanged to 6-Cambodian [place] catheter. The catheter was engaged into left main coronary artery. Contrast injected, and left coronary angiogram was done. Then, the catheter was exchanged to pigtail catheter. Pigtail catheter inserted into left ventricle. LVEDP measured. Contrast injected, and LV angiogram was done. Then, the catheter was pulled back across the aortic valve. Gradient across the aortic valve was measured. The patient tolerated the procedure well. Postprocedure, Terumo radial band applied to the right wrist with excellent hemostasis. Radiological supervision and radiological interpretation of the coronary imaging was done. FINDINGS: 1. Left main coronary artery is patent. 2. LAD and diagonal branches are patent. 3. Left circumflex and obtuse marginal branches are patent. 4. Right coronary artery is dominant and patent. 5. Left ventricular ejection fraction is approximately 20%. Dilated nonischemic cardiomyopathy. EDP is 28. No gradient across the aortic valve. IMPRESSION: 1. Normal coronaries. 2. Dilated nonischemic cardiomyopathy with ejection fraction of 20%. End-diastolic pressure is 28. PLAN: Recommend medical management with beta blockers, JUSTUS inhibitors, aspirin. Since the patient presented with acute systolic heart failure, recommend LifeVest for 3 months. Repeat echo after 3 months. If the EF is still low, the patient may require AICD. Kam Moore MD
[2018-12-02] MEDS: Levothyroxine 25 MCG TAB PO SCH (06:19)
--- NOTE | 2018-12-02 10:29 | CP.PCM.CON ---
History of Present Illness - History of Present Illness History of Present Illness: Cardiac EP consult Chart and imaging reviewed Ms. High has a heart failure syndrome with left ventricular systolic dysfunction with non obstructive coronary arteries Likely nonischemic heart disease with a potential for recovery There are no obvious high risk features for sudden (syncope, Ventricular tachycardia) An external defibrillator (life vest) is a reasonable option discussed with patient procedures risks caveats in using the life vest; she is agreeable and conversant with it Plan Outpatient follow up Past Patient History - Past Medical History & Family History Past Medical History?: Yes - Past Social History Smoking Status: Never Smoked - ENDOCRINE/METABOLIC Hx Hyperthyroidism: Yes - MUSCULOSKELETAL/RHEUMATOLOGICAL Hx Falls: No - PSYCHIATRIC Hx Substance Use: No - SURGICAL HISTORY Hx Surgeries: No - ANESTHESIA Hx Anesthesia: No Meds Allergies/Adverse Reactions: Allergies Allergy/AdvReac Type Severity Reaction Status Date / Time No Known Allergies Allergy Unverified 11/27/18 13:23 - Medications Medications: Current Medications Aspirin (Ecotrin) 81 mg PO DAILY [facility] Last Admin: 12/01/18 09:13 Dose: 81 mg Enoxaparin Sodium (Lovenox) 40 mg SC DAILY [facility] Last Admin: 12/01/18 09:13 Dose: Not Given Furosemide (Lasix) 20 mg IVP DAILY [facility] Last Admin: 12/01/18 09:13 Dose: Not Given Levothyroxine Sodium (Synthroid) 25 mcg PO DAILY@0630 [facility] Last Admin: 12/02/18 06:19 Dose: 25 mcg Lisinopril (Zestril) 2.5 mg PO DAILY [facility] Last Admin: 12/02/18 08:18 Dose: Not Given Metoprolol Succinate (Toprol Xl) 12.5 mg PO DAILY [facility] Last Admin: 12/01/18 09:13 Dose: Not Given Results - Vital Signs Recent Vital Signs: Last Vital Signs Temp 97.5 F L 12/02/18 07:05 Pulse 85 12/02/18 07:05 Resp 20 12/02/18 07:05 BP 97/67 L 12/02/18 07:05 Pulse Ox 100 12/02/18 07:05 - Labs Result Diagrams: 12/01/18 06:43 12/01/18 06:43
[2018-12-02] MEDS: Enoxaparin 40 mg Syringe SC SCH (10:53)
[2018-12-02] MEDS: Metoprolol Succinate 12.5 mg XL Tab PO SCH (10:54)
--- NOTE | 2018-12-02 12:42 | CP.PCM.PN ---
Subjective - Date & Time of Evaluation Date of Evaluation: 12/02/18 Time of Evaluation: 12:40 - Subjective Subjective: ok.seen by ep. Objective - Vital Signs/Intake and Output Vital Signs (last 24 hours): Temp Pulse Resp BP Pulse Ox 97.5 F L 85 20 97/67 L 100 12/02/18 07:05 12/02/18 07:05 12/02/18 07:05 12/02/18 07:05 12/02/18 07:05 Intake and Output: 12/02/18 12/02/18 06:59 18:59 Intake Total 240 120 Balance 240 120 - Medications Medications: Current Medications Aspirin (Ecotrin) 81 mg PO DAILY [facility] Last Admin: 12/02/18 10:53 Dose: 81 mg Enoxaparin Sodium (Lovenox) 40 mg SC DAILY [facility] Last Admin: 12/02/18 10:53 Dose: 40 mg Furosemide (Lasix) 20 mg IVP DAILY [facility] Last Admin: 12/02/18 10:54 Dose: Not Given Levothyroxine Sodium (Synthroid) 25 mcg PO DAILY@0630 [facility] Last Admin: 12/02/18 06:19 Dose: 25 mcg Lisinopril (Zestril) 2.5 mg PO DAILY [facility] Last Admin: 12/02/18 10:56 Dose: Not Given Metoprolol Succinate (Toprol Xl) 12.5 mg PO DAILY [facility] Last Admin: 12/02/18 10:54 Dose: Not Given - Labs Labs: 12/01/18 06:43 12/01/18 06:43 PT 10.9 SECONDS (9.7-12.2) 12/01/18 06:43 INR 1.0 12/01/18 06:43 APTT 29 SECONDS (21-34) 11/27/18 14:59 - Constitutional Appears: No Acute Distress - Head Exam Head Exam: NORMOCEPHALIC - Neck Exam Neck Exam: Normal Inspection - Respiratory Exam Respiratory Exam: Clear to Ausculation Bilateral - Cardiovascular Exam Cardiovascular Exam: REGULAR RHYTHM - GI/Abdominal Exam GI & Abdominal Exam: Soft - Extremities Exam Extremities Exam: absent: Pedal Edema - Neurological Exam Neurological Exam: Alert, Oriented x3 Assessment and Plan - Assessment and Plan (Free Text) Plan: chf,resolved.needs f/u ep.will sign off .rt o in 3 weeks
[2018-12-02 14:36] LABS: PARVOVIRUS B19 AB (IGG) 5.5 (<0.9); PARVOVIRUS B19 AB (IGM) 0.3 (<0.9)
--- NOTE | 2018-12-02 16:02 | CP.PCM.PN ---
Subjective - Date & Time of Evaluation Date of Evaluation: 12/02/18 Time of Evaluation: 16:02 Objective - Vital Signs/Intake and Output Vital Signs (last 24 hours): Temp Pulse Resp BP Pulse Ox 97.5 F L 85 20 97/67 L 100 12/02/18 07:05 12/02/18 07:05 12/02/18 07:05 12/02/18 07:05 12/02/18 07:05 Intake and Output: 12/02/18 12/02/18 06:59 18:59 Intake Total 240 120 Balance 240 120 - Medications Medications: Current Medications Aspirin (Ecotrin) 81 mg PO DAILY [facility] Last Admin: 12/02/18 10:53 Dose: 81 mg Enoxaparin Sodium (Lovenox) 40 mg SC DAILY [facility] Last Admin: 12/02/18 10:53 Dose: 40 mg Furosemide (Lasix) 20 mg IVP DAILY [facility] Last Admin: 12/02/18 10:54 Dose: Not Given Levothyroxine Sodium (Synthroid) 25 mcg PO DAILY@0630 [facility] Last Admin: 12/02/18 06:19 Dose: 25 mcg Lisinopril (Zestril) 2.5 mg PO DAILY [facility] Last Admin: 12/02/18 10:56 Dose: Not Given Metoprolol Succinate (Toprol Xl) 12.5 mg PO DAILY [facility] Last Admin: 12/02/18 10:54 Dose: Not Given - Labs Labs: 12/01/18 06:43 12/01/18 06:43 PT 10.9 SECONDS (9.7-12.2) 12/01/18 06:43 INR 1.0 12/01/18 06:43 APTT 29 SECONDS (21-34) 11/27/18 14:59
[2018-12-03] MEDS: Levothyroxine 25 MCG TAB PO SCH (06:07)
[2018-12-03] MEDS: Enoxaparin 40 mg Syringe SC SCH (09:41)
[2018-12-03] MEDS: Metoprolol Succinate 12.5 mg XL Tab PO SCH (09:43)
[2018-12-03] MEDS: cefTRIAXone 2 GM IN NS 2 GM/100 ML BAG IVPB SCH (14:08)
--- NOTE | 2018-12-03 16:33 | CP.PCM.PN ---
Subjective - Date & Time of Evaluation Date of Evaluation: 12/03/18 Time of Evaluation: 16:33 Objective - Vital Signs/Intake and Output Vital Signs (last 24 hours): Temp Pulse Resp BP Pulse Ox 97.4 F L 74 20 110/81 100 12/03/18 07:00 12/03/18 16:00 12/03/18 07:00 12/03/18 07:00 12/03/18 07:00 Intake and Output: 12/03/18 12/03/18 06:59 18:59 Intake Total 490 Balance 490 - Medications Medications: Current Medications Acetaminophen (Tylenol 325mg Tab) 650 mg PO Q6 PRN PRN Reason: Pain, moderate (4-7) Aspirin (Ecotrin) 81 mg PO DAILY [facility] Last Admin: 12/03/18 09:43 Dose: 81 mg Docusate Sodium (Colace) 100 mg PO BID [facility] Enoxaparin Sodium (Lovenox) 40 mg SC DAILY [facility] Last Admin: 12/03/18 09:41 Dose: 40 mg Furosemide (Lasix) 20 mg IVP DAILY [facility] Last Admin: 12/03/18 14:07 Dose: Not Given Ceftriaxone Sodium (Rocephin 2 Gm Ivpb) 2 gm in 100 mls @ 100 mls/hr IVPB Q24H [facility]; Protocol Last Admin: 12/03/18 14:08 Dose: 100 mls/hr Levothyroxine Sodium (Synthroid) 25 mcg PO DAILY@0630 [facility] Last Admin: 12/03/18 06:07 Dose: 25 mcg Lisinopril (Zestril) 2.5 mg PO DAILY [facility] Last Admin: 12/03/18 09:43 Dose: 2.5 mg Metoprolol Succinate (Toprol Xl) 12.5 mg PO DAILY [facility] Last Admin: 12/03/18 09:43 Dose: 12.5 mg - Labs Labs: 12/01/18 06:43 12/01/18 06:43 PT 10.9 SECONDS (9.7-12.2) 12/01/18 06:43 INR 1.0 12/01/18 06:43 APTT 29 SECONDS (21-34) 11/27/18 14:59
--- NOTE | 2018-12-03 16:49 | CP.PCM.PN ---
Subjective - Date & Time of Evaluation Date of Evaluation: 12/03/18 Time of Evaluation: 08:00 - Subjective Subjective: has dilated non ischemic cardiomyopathy all viral serologies neg blood cultures x 2 positive- Objective - Vital Signs/Intake and Output Vital Signs (last 24 hours): Temp Pulse Resp BP Pulse Ox 97.4 F L 74 20 110/81 100 12/03/18 07:00 12/03/18 16:00 12/03/18 07:00 12/03/18 07:00 12/03/18 07:00 Intake and Output: 12/03/18 12/03/18 06:59 18:59 Intake Total 490 Balance 490 - Medications Medications: Current Medications Acetaminophen (Tylenol 325mg Tab) 650 mg PO Q6 PRN PRN Reason: Pain, moderate (4-7) Last Admin: 12/03/18 16:33 Dose: 650 mg Aspirin (Ecotrin) 81 mg PO DAILY [facility] Last Admin: 12/03/18 09:43 Dose: 81 mg Docusate Sodium (Colace) 100 mg PO BID [facility] Enoxaparin Sodium (Lovenox) 40 mg SC DAILY [facility] Last Admin: 12/03/18 09:41 Dose: 40 mg Furosemide (Lasix) 20 mg IVP DAILY [facility] Last Admin: 12/03/18 14:07 Dose: Not Given Ceftriaxone Sodium (Rocephin 2 Gm Ivpb) 2 gm in 100 mls @ 100 mls/hr IVPB Q24H [facility]; Protocol Last Admin: 12/03/18 14:08 Dose: 100 mls/hr Levothyroxine Sodium (Synthroid) 25 mcg PO DAILY@0630 [facility] Last Admin: 12/03/18 06:07 Dose: 25 mcg Lisinopril (Zestril) 2.5 mg PO DAILY [facility] Last Admin: 12/03/18 09:43 Dose: 2.5 mg Metoprolol Succinate (Toprol Xl) 12.5 mg PO DAILY [facility] Last Admin: 12/03/18 09:43 Dose: 12.5 mg - Labs Labs: 12/01/18 06:43 12/01/18 06:43 PT 10.9 SECONDS (9.7-12.2) 12/01/18 06:43 INR 1.0 12/01/18 06:43 APTT 29 SECONDS (21-34) 01/10/19 14:59 - Constitutional Appears: Non-toxic, Chronically Ill - Head Exam Head Exam: NORMOCEPHALIC - Eye Exam Eye Exam: absent: Scleral icterus - ENT Exam ENT Exam: Mucous Membranes Dry - Neck Exam Neck Exam: absent: Lymphadenopathy - Respiratory Exam Respiratory Exam: Decreased Breath Sounds, Clear to Ausculation Bilateral - Cardiovascular Exam Cardiovascular Exam: REGULAR RHYTHM, +S1, +S2 - GI/Abdominal Exam GI & Abdominal Exam: Distended, Soft. absent: Tenderness - Rectal Exam Rectal Exam: Deferred - Exam Exam: NORMAL INSPECTION - Extremities Exam Extremities Exam: absent: Pedal Edema - Back Exam Back Exam: absent: CVA tenderness (L), CVA tenderness (R) - Neurological Exam Neurological Exam: Alert, Awake, CN II-XII Intact, Oriented x3 Neuro motor strength exam: Left Upper Extremity: 5, Right Upper Extremity: 5, Left Lower Extremity: 5, Right Lower Extremity: 5 - Psychiatric Exam Psychiatric exam: Depressed - Skin Skin Exam: Dry Assessment and Plan (1) Heart failure Status: Acute (2) Cardiomyopathy Status: Acute - Assessment and Plan (Free Text) Assessment: has dilated non ischemic cardiomyopathy all viral serologies neg blood cultures x 2 positive will start IV antibiotics after repeat cultures
[2018-12-04] MEDS: Levothyroxine 25 MCG TAB PO SCH (06:26)
[2018-12-04] MEDS: Metoprolol Succinate 12.5 mg XL Tab PO SCH (09:54)
[2018-12-04] MEDS: Enoxaparin 40 mg Syringe SC SCH (09:54)
[2018-12-04] MEDS: cefTRIAXone 2 GM IN NS 2 GM/100 ML BAG IVPB SCH (12:30)
--- NOTE | 2018-12-04 18:48 | CP.PCM.PN ---
Subjective - Date & Time of Evaluation Date of Evaluation: 12/04/18 Time of Evaluation: 18:47 Objective - Vital Signs/Intake and Output Vital Signs (last 24 hours): Temp Pulse Resp BP Pulse Ox 98.5 F 70 20 124/62 97 12/04/18 07:00 12/04/18 16:00 12/04/18 07:00 12/04/18 09:54 12/04/18 07:00 Intake and Output: 12/04/18 12/04/18 06:59 18:59 Intake Total 500 Balance 500 - Medications Medications: Current Medications Acetaminophen (Tylenol 325mg Tab) 650 mg PO Q6 PRN PRN Reason: Pain, moderate (4-7) Last Admin: 12/03/18 16:33 Dose: 650 mg Aspirin (Ecotrin) 81 mg PO DAILY [facility] Last Admin: 12/04/18 09:54 Dose: 81 mg Docusate Sodium (Colace) 100 mg PO BID [facility] Last Admin: 12/04/18 17:56 Dose: 100 mg Enoxaparin Sodium (Lovenox) 40 mg SC DAILY [facility] Last Admin: 12/04/18 09:54 Dose: 40 mg Furosemide (Lasix) 20 mg IVP DAILY [facility] Last Admin: 12/04/18 09:54 Dose: 20 mg Ceftriaxone Sodium (Rocephin 2 Gm Ivpb) 2 gm in 100 mls @ 100 mls/hr IVPB Q24H [facility]; Protocol Last Admin: 12/04/18 12:30 Dose: 100 mls/hr Levothyroxine Sodium (Synthroid) 25 mcg PO DAILY@0630 [facility] Last Admin: 12/04/18 06:26 Dose: 25 mcg Lisinopril (Zestril) 2.5 mg PO DAILY [facility] Last Admin: 12/04/18 09:54 Dose: 2.5 mg Metoprolol Succinate (Toprol Xl) 12.5 mg PO DAILY [facility] Last Admin: 12/04/18 09:54 Dose: 12.5 mg - Labs Labs: 12/01/18 06:43 12/01/18 06:43 PT 10.9 SECONDS (9.7-12.2) 12/01/18 06:43 INR 1.0 12/01/18 06:43 APTT 29 SECONDS (21-34) 11/27/18 14:59
--- NOTE | 2018-12-04 19:12 | CP.PCM.PN ---
Subjective - Date & Time of Evaluation Date of Evaluation: 12/04/18 Time of Evaluation: 08:00 - Subjective Subjective: afebrile cultures repeated and negative suspect first set was contaminated Objective - Vital Signs/Intake and Output Vital Signs (last 24 hours): Temp Pulse Resp BP Pulse Ox 98.5 F 70 20 124/62 97 12/04/18 07:00 12/04/18 16:00 12/04/18 07:00 12/04/18 09:54 12/04/18 07:00 - Medications Medications: Current Medications Acetaminophen (Tylenol 325mg Tab) 650 mg PO Q6 PRN PRN Reason: Pain, moderate (4-7) Last Admin: 12/03/18 16:33 Dose: 650 mg Aspirin (Ecotrin) 81 mg PO DAILY [facility] Last Admin: 12/04/18 09:54 Dose: 81 mg Docusate Sodium (Colace) 100 mg PO BID [facility] Last Admin: 12/04/18 17:56 Dose: 100 mg Enoxaparin Sodium (Lovenox) 40 mg SC DAILY [facility] Last Admin: 12/04/18 09:54 Dose: 40 mg Furosemide (Lasix) 20 mg IVP DAILY [facility] Last Admin: 12/04/18 09:54 Dose: 20 mg Ceftriaxone Sodium (Rocephin 2 Gm Ivpb) 2 gm in 100 mls @ 100 mls/hr IVPB Q24H [facility]; Protocol Last Admin: 12/04/18 12:30 Dose: 100 mls/hr Levothyroxine Sodium (Synthroid) 25 mcg PO DAILY@0630 [facility] Last Admin: 12/04/18 06:26 Dose: 25 mcg Lisinopril (Zestril) 2.5 mg PO DAILY [facility] Last Admin: 12/04/18 09:54 Dose: 2.5 mg Metoprolol Succinate (Toprol Xl) 12.5 mg PO DAILY [facility] Last Admin: 12/04/18 09:54 Dose: 12.5 mg - Labs Labs: 12/01/18 06:43 12/01/18 06:43 PT 10.9 SECONDS (9.7-12.2) 12/01/18 06:43 INR 1.0 12/01/18 06:43 APTT 29 SECONDS (21-34) 11/27/18 14:59 - Constitutional Appears: Non-toxic, Chronically Ill - Head Exam Head Exam: NORMOCEPHALIC - Eye Exam Eye Exam: absent: Scleral icterus - ENT Exam ENT Exam: Mucous Membranes Dry - Neck Exam Neck Exam: absent: Lymphadenopathy - Respiratory Exam Respiratory Exam: Decreased Breath Sounds - Cardiovascular Exam Cardiovascular Exam: REGULAR RHYTHM - GI/Abdominal Exam GI & Abdominal Exam: Distended, Soft - Rectal Exam Rectal Exam: Deferred - Exam Exam: NORMAL INSPECTION - Extremities Exam Extremities Exam: absent: Pedal Edema - Back Exam Back Exam: absent: CVA tenderness (L), CVA tenderness (R) - Neurological Exam Neurological Exam: Alert, Awake, CN II-XII Intact, Oriented x3 - Psychiatric Exam Psychiatric exam: Normal Mood - Skin Skin Exam: Dry Assessment and Plan (1) Heart failure Status: Acute (2) Cardiomyopathy Status: Acute - Assessment and Plan (Free Text) Assessment: cultures repeated and negative suspect first set was contaminated possible d/c if repeat cultures negative
[2018-12-05] MEDS: Levothyroxine 25 MCG TAB PO SCH (05:49)
[2018-12-05] MEDS: Enoxaparin 40 mg Syringe SC SCH (09:29)
[2018-12-05] MEDS: Metoprolol Succinate 12.5 mg XL Tab PO SCH (09:41)
[2018-12-05] MEDS: cefTRIAXone 2 GM IN NS 2 GM/100 ML BAG IVPB SCH (11:39)
--- NOTE | 2018-12-05 14:16 | CP.PCM.PN ---
Subjective - Date & Time of Evaluation Date of Evaluation: 12/05/18 Time of Evaluation: 14:16 Objective - Vital Signs/Intake and Output Vital Signs (last 24 hours): Temp Pulse Resp BP Pulse Ox 98.2 F 76 20 121/76 96 12/05/18 07:00 12/05/18 07:50 12/05/18 07:00 12/05/18 09:30 12/05/18 07:00 Intake and Output: 12/05/18 12/05/18 06:59 18:59 Intake Total 580 Balance 580 - Medications Medications: Current Medications Acetaminophen (Tylenol 325mg Tab) 650 mg PO Q6 PRN PRN Reason: Pain, moderate (4-7) Last Admin: 12/03/18 16:33 Dose: 650 mg Aspirin (Ecotrin) 81 mg PO DAILY [facility] Last Admin: 12/05/18 09:29 Dose: 81 mg Docusate Sodium (Colace) 100 mg PO BID [facility] Last Admin: 12/05/18 09:30 Dose: 100 mg Furosemide (Lasix) 20 mg IVP DAILY [facility] Last Admin: 12/05/18 09:30 Dose: 20 mg Ceftriaxone Sodium (Rocephin 2 Gm Ivpb) 2 gm in 100 mls @ 100 mls/hr IVPB Q24H [facility]; Protocol Last Admin: 12/05/18 11:39 Dose: 100 mls/hr Levothyroxine Sodium (Synthroid) 25 mcg PO DAILY@0630 [facility] Last Admin: 12/05/18 05:49 Dose: 25 mcg Lisinopril (Zestril) 2.5 mg PO DAILY [facility] Last Admin: 12/05/18 09:41 Dose: 2.5 mg Metoprolol Succinate (Toprol Xl) 12.5 mg PO DAILY [facility] Last Admin: 12/05/18 09:41 Dose: 12.5 mg - Labs Labs: 12/01/18 06:43 12/01/18 06:43 PT 10.9 SECONDS (9.7-12.2) 12/01/18 06:43 INR 1.0 12/01/18 06:43 APTT 29 SECONDS (21-34) 11/27/18 14:59
--- NOTE | 2018-12-05 14:35 | CP.PCM.PN ---
Subjective - Date & Time of Evaluation Date of Evaluation: 12/05/18 Time of Evaluation: 14:35 - Subjective Subjective: PATIENT SEEN AND EXAMINED AT THE BEDSIDE Objective - Vital Signs/Intake and Output Vital Signs (last 24 hours): Temp Pulse Resp BP Pulse Ox 98.2 F 76 20 121/76 96 12/05/18 07:00 12/05/18 07:50 12/05/18 07:00 12/05/18 09:30 12/05/18 07:00 Intake and Output: 12/05/18 12/05/18 06:59 18:59 Intake Total 580 Balance 580 - Medications Medications: Current Medications Acetaminophen (Tylenol 325mg Tab) 650 mg PO Q6 PRN PRN Reason: Pain, moderate (4-7) Last Admin: 12/03/18 16:33 Dose: 650 mg Aspirin (Ecotrin) 81 mg PO DAILY [facility] Last Admin: 12/05/18 09:29 Dose: 81 mg Docusate Sodium (Colace) 100 mg PO BID [facility] Last Admin: 12/05/18 09:30 Dose: 100 mg Furosemide (Lasix) 20 mg IVP DAILY [facility] Last Admin: 12/05/18 09:30 Dose: 20 mg Ceftriaxone Sodium (Rocephin 2 Gm Ivpb) 2 gm in 100 mls @ 100 mls/hr IVPB Q24H [facility]; Protocol Last Admin: 12/05/18 11:39 Dose: 100 mls/hr Levothyroxine Sodium (Synthroid) 25 mcg PO DAILY@0630 [facility] Last Admin: 12/05/18 05:49 Dose: 25 mcg Lisinopril (Zestril) 2.5 mg PO DAILY [facility] Last Admin: 12/05/18 09:41 Dose: 2.5 mg Metoprolol Succinate (Toprol Xl) 12.5 mg PO DAILY [facility] Last Admin: 12/05/18 09:41 Dose: 12.5 mg - Labs Labs: 12/01/18 06:43 12/01/18 06:43 PT 10.9 SECONDS (9.7-12.2) 12/01/18 06:43 INR 1.0 12/01/18 06:43 APTT 29 SECONDS (21-34) 11/27/18 14:59 Assessment and Plan - Assessment and Plan (Free Text) Assessment: FOLLOW UP WITH DR Maude BYRNE IN HIS OFFICE ----CALL FOR APPOINTMENT FOLLOW UP WITH DR ESCAMILLA IN HIS OFFICE----CALL FOR APPOINTMENT FOLLOW UP WITH DR HERBERT IN HIS OFFICE ------CALL FOR APPOINTMENT CONTINUE HOME MEDICATION NEW PRESCRIPTION GIVEN LASIX 20 MG ON TAB BY MOUTH DAILY LISINOPRIL 2.5 MG ONE TAB BY MOUTH DAILY TROPOL XL 12.5 MG ONE TAB BY MOUTH DAILY ASPIRIN 81 MG ONE TAB BY MOUTH DAILY COLACE 100 MG BY MOUTH THREE TIMES A DAY ACTIVITY TOLERATED LIFEVEST NEED TO BE WEAR AT ALL TIME PER [employer] HELPER DR KILGORE OR GO TO THE EMERGENCY ROOM IF SYMPTOM RETURN OR WORSENING
[2018-12-05 16:18] VITALS: BP 100/65; PULSE 68; TEMP 97.9; O2SAT 98
--- NOTE | 2018-12-05 17:14 | CP.PCM.PN ---
Subjective - Date & Time of Evaluation Date of Evaluation: 12/05/18 Time of Evaluation: 09:00 - Subjective Subjective: improving afeb repeat cultures negative\ Objective - Vital Signs/Intake and Output Vital Signs (last 24 hours): Temp Pulse Resp BP Pulse Ox 97.9 F 68 20 100/65 98 12/05/18 15:20 12/05/18 15:20 12/05/18 15:20 12/05/18 15:20 12/05/18 15:20 Intake and Output: 12/05/18 12/05/18 06:59 18:59 Intake Total 580 400 Balance 580 400 - Medications Medications: Current Medications Acetaminophen (Tylenol 325mg Tab) 650 mg PO Q6 PRN PRN Reason: Pain, moderate (4-7) Last Admin: 12/03/18 16:33 Dose: 650 mg Aspirin (Ecotrin) 81 mg PO DAILY [facility] Last Admin: 12/05/18 09:29 Dose: 81 mg Docusate Sodium (Colace) 100 mg PO BID [facility] Last Admin: 12/05/18 09:30 Dose: 100 mg Furosemide (Lasix) 20 mg IVP DAILY [facility] Last Admin: 12/05/18 09:30 Dose: 20 mg Ceftriaxone Sodium (Rocephin 2 Gm Ivpb) 2 gm in 100 mls @ 100 mls/hr IVPB Q24H [facility]; Protocol Last Admin: 12/05/18 11:39 Dose: 100 mls/hr Levothyroxine Sodium (Synthroid) 25 mcg PO DAILY@0630 [facility] Last Admin: 12/05/18 05:49 Dose: 25 mcg Lisinopril (Zestril) 2.5 mg PO DAILY [facility] Last Admin: 12/05/18 09:41 Dose: 2.5 mg Metoprolol Succinate (Toprol Xl) 12.5 mg PO DAILY [facility] Last Admin: 12/05/18 09:41 Dose: 12.5 mg - Labs Labs: 12/01/18 06:43 12/01/18 06:43 PT 10.9 SECONDS (9.7-12.2) 12/01/18 06:43 INR 1.0 12/01/18 06:43 APTT 29 SECONDS (21-34) 11/27/18 14:59 - Constitutional Appears: Non-toxic, Cachectic, Chronically Ill - Head Exam Head Exam: NORMOCEPHALIC - Eye Exam Eye Exam: absent: Scleral icterus - ENT Exam ENT Exam: Mucous Membranes Dry - Neck Exam Neck Exam: absent: Lymphadenopathy - Respiratory Exam Respiratory Exam: Decreased Breath Sounds - Cardiovascular Exam Cardiovascular Exam: REGULAR RHYTHM - GI/Abdominal Exam GI & Abdominal Exam: Distended - Rectal Exam Rectal Exam: Deferred - Exam Exam: NORMAL INSPECTION - Extremities Exam Extremities Exam: absent: Pedal Edema - Back Exam Back Exam: absent: CVA tenderness (L), CVA tenderness (R) - Neurological Exam Neurological Exam: Alert, Awake, Oriented x3 Assessment and Plan (1) Heart failure Status: Acute (2) Cardiomyopathy Status: Acute - Assessment and Plan (Free Text) Assessment: cont rx as ordered follow up with Dr Landaverde
--- NOTE | 2018-12-12 03:09 | CP.PCM.DIS ---
Provider - Provider Date of Admission: 11/27/18 15:51 Attending physician: Catarina Baum MD Consults: 11/28/18 08:00 Physician Consult Routine Comment: Consulting Provider: Jesus Manuel Landaverde Consulting Physician: Jesus Manuel Landaverde Reason for Consult: heart failure 11/29/18 12:27 Infectious Disease Consult Routine Comment: cardiomyopathy Consulting Provider: Tariq Barker Consulting Physician: Tariq Barker Reason for Consult: chf 11/29/18 12:28 Cardiology Consult Routine Comment: chf Consulting Provider: Kam Moore Consulting Physician: Kam Moore Reason for Consult: rt & lt heart cath 11/30/18 19:07 Cardiology Consult Routine Comment: Please notify Dr. Morales Consulting Provider: Kane Morales Consulting Physician: Kane Morales Reason for Consult: Evaluation for AICD Time Spent in preparation of Discharge (in minutes): 35 Hospital Course - Lab Results Lab Results: Micro Results 12/01/18 07:18 Blood-Venous S.aureus & Coag-Neg Staph PNA FISH - Final TEST NOT PERFORMED 12/01/18 07:18 Blood-Venous Blood Culture - Final Coagulase Neg Staphylococcus 12/01/18 07:18 Blood-Venous Gram Stain - Final 12/03/18 11:30 Blood Blood Culture - Final NO GROWTH AFTER 5 DAYS 12/03/18 11:30 Blood Gram Stain - Final TEST NOT PERFORMED 12/03/18 13:41 Blood Blood Culture - Final NO GROWTH AFTER 5 DAYS 12/03/18 13:41 Blood Gram Stain - Final TEST NOT PERFORMED 12/01/18 06:45 Blood-Venous Blood Culture - Final Coagulase Neg Staphylococcus 12/01/18 06:45 Blood-Venous Gram Stain - Final Most Recent Lab Values WBC 4.8 K/uL (4.8-10.8) 12/01/18 06:43 RBC 5.17 Mil/uL (3.80-5.20) 12/01/18 06:43 Hgb 15.6 g/dL (11.0-16.0) 12/01/18 06:43 Hct 46.3 % (34.0-47.0) 12/01/18 06:43 MCV 89.5 fL (81.0-99.0) 12/01/18 06:43 MCH 30.1 pg (27.0-31.0) 12/01/18 06:43 MCHC 33.7 g/dL (33.0-37.0) 12/01/18 06:43 RDW 14.1 % (11.5-14.5) 12/01/18 06:43 Plt Count 212 K/uL (130-400) 12/01/18 06:43 MPV 9.9 fL (7.2-11.7) 12/01/18 06:43 Neut % (Auto) 65.7 % (50.0-75.0) 11/27/18 14:59 Lymph % (Auto) 27.1 % (20.0-40.0) 11/27/18 14:59 [place] % (Auto) 6.3 % (0.0-10.0) 11/27/18 14:59 Eos % (Auto) 0.3 % (0.0-4.0) 11/27/18 14:59 Baso % (Auto) 0.6 % (0.0-2.0) 11/27/18 14:59 Neut # (Auto) 3.9 K/uL (1.8-7.0) 11/27/18 14:59 Lymph # (Auto) 1.6 K/uL (1.0-4.3) 11/27/18 14:59 [place] # (Auto) 0.4 K/uL (0.0-0.8) 11/27/18 14:59 Eos # (Auto) 0.0 K/uL (0.0-0.7) 11/27/18 14:59 Baso # (Auto) 0.0 K/uL (0.0-0.2) 11/27/18 14:59 Differential Comment 12/01/18 06:43 ESR 2 mm/hr (0-20) 11/28/18 14:00 PT 10.9 SECONDS (9.7-12.2) 12/01/18 06:43 INR 1.0 12/01/18 06:43 APTT 29 SECONDS (21-34) 11/27/18 14:59 D-Dimer, Quantitative 228 ng/mlDDU (0-243) 11/27/18 14:59 Sodium 137 mmol/L (132-148) 12/01/18 06:43 Potassium 4.0 mmol/L (3.6-5.2) 12/01/18 06:43 Chloride 103 mmol/L (98-107) 12/01/18 06:43 Carbon Dioxide 29 mmol/L (22-30) 12/01/18 06:43 Anion Gap 10 (10-20) 12/01/18 06:43 BUN 20 mg/dL (7-17) H 12/01/18 06:43 Creatinine 0.8 mg/dL (0.7-1.2) 12/01/18 06:43 Est GFR ( Amer) > 60 12/01/18 06:43 Est GFR (Non-Af Amer) > 60 12/01/18 06:43 Random Glucose 91 mg/dL (65-105) D 12/01/18 06:43 Calcium 9.1 mg/dl (8.6-10.4) 12/01/18 06:43 Magnesium 2.1 mg/dL (1.6-2.3) 11/28/18 14:00 Total Bilirubin 0.8 mg/dL (0.2-1.3) 11/27/18 14:59 AST 74 U/L (14-36) H 11/27/18 14:59 ALT 110 U/L (9-52) H 11/27/18 14:59 Alkaline Phosphatase 89 U/L (38-126) 11/27/18 14:59 Troponin I 0.0120 ng/mL (0.00-0.120) 11/28/18 14:00 C-React Prot High Sens 1.16 mg/L (1.00-3.00) 11/30/18 07:50 NT-Pro-B Natriuret Pep 21862 pg/mL (0-900) H 11/27/18 14:59 Total Protein 6.9 g/dL (6.3-8.3) 11/27/18 14:59 Albumin 4.3 g/dL (3.5-5.0) 11/27/18 14:59 Globulin 2.6 gm/dL (2.2-3.9) 11/27/18 14:59 Albumin/Globulin Ratio 1.6 (1.0-2.1) 11/27/18 14:59 Triglycerides 123 mg/dL (0-149) 11/30/18 07:50 Cholesterol 190 mg/dL (0-199) 11/30/18 07:50 LDL Cholesterol Direct 131 mg/dL (0-129) H 11/30/18 07:50 HDL Cholesterol 46 mg/dL (30-70) 11/30/18 07:50 Vitamin B12 792 pg/mL (239-931) 11/28/18 14:00 Procalcitonin < 0.05 NG/ML (0.19-0.49) L 11/30/18 07:50 Total T3 1.84 nmol/L (1.49-2.60) 11/28/18 14:00 JEAN Screen Negative (Negative) 11/28/18 14:00 RPR Nonreactive (NONREACTIVE) 11/30/18 07:50 Lyme Disease Screen <0.90 index 11/30/18 07:50 [place] Type A(2) Ab <1:8 11/30/18 07:50 [place] Type A(4) Ab <1:8 11/30/18 07:50 [place] Type A(7) Ab <1:8 11/30/18 07:50 [place] Type A(9) Ab <1:8 11/30/18 07:50 [place] Type A(16) Ab <1:8 11/30/18 07:50 [place] Type B(1) Ab <1:8 11/30/18 07:50 [place] Type B(2) Ab <1:8 11/30/18 07:50 [place] Type B(3) Ab <1:8 11/30/18 07:50 [place] Type B(4) Ab <1:8 11/30/18 07:50 [place] Type B(5) Ab 1:16 H 11/30/18 07:50 [place] Type B(6) Ab <1:8 11/30/18 07:50 CMV IgG Ab >10.00 U/mL H 11/30/18 07:50 CMV IgM Ab <30.00 AU/mL 11/30/18 07:50 Dengue Fever IgG Ab 0.03 11/30/18 07:50 Dengue Fever IgM Ab 1.24 11/30/18 07:50 Hepatitis A IgM Ab Negative (NEGATIVE) 11/28/18 14:00 Hep Bs Antigen Negative (NEGATIVE) 11/28/18 14:00 Hep B Core IgM Ab Negative (NEGATIVE) 11/28/18 14:00 Hepatitis C Antibody Negative (NEGATIVE) 11/28/18 14:00 HIV 1&2 Antibody Screen Negative (NEGATIVE) 11/30/18 07:50 Infectious [place] Assay Negative (NEGATIVE) 11/30/18 07:50 Parvovirus B19 IgG Ab 5.5 (<0.9) H 11/30/18 07:50 Parvovirus B19 IgM Ab 0.3 (<0.9) 11/30/18 07:50 Parvovirus Interpret 11/30/18 07:50 Trypanosoma cruzi IgG Nonreactive 11/30/18 07:50 - Hospital Course Hospital Course: 53-year-old female with no history of medical problems presented in heart failure. Patient was found to have cardiomyopathy. 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 All infectious disease workup is negative. Patient was also evaluated by EP and was recommended to have LifeVest. All arrangements were made and patient is being discharged home to be followed by cardiology Discharge Exam - Head Exam Head Exam: NORMOCEPHALIC - Eye Exam Eye Exam: Normal appearance - ENT Exam ENT Exam: Mucous Membranes Moist - Respiratory Exam Respiratory Exam: Clear to PA & Lateral - Cardiovascular Exam Cardiovascular Exam: REGULAR RHYTHM, +S1, +S2 - GI/Abdominal Exam GI & Abdominal Exam: Normal Bowel Sounds - Extremities Exam Extremities exam: normal inspection - Neurological Exam Neurological exam: Alert, Oriented x3 Discharge Plan - Discharge Medications Prescriptions: Docusate [Colace] 100 mg PO BID 15 Days cap Aspirin [Ecotrin] 81 mg PO DAILY 30 Days tabec Furosemide [Lasix] 20 mg PO DAILY 30 Days tab Metoprolol Succinate XL [Toprol XL] 12.5 mg PO DAILY 30 Days tab Lisinopril [Zestril] 2.5 mg PO DAILY 30 Days tab - Follow Up Plan Condition: FAIR Disposition: HOME/ ROUTINE Instructions: Heart Healthy Diet, Heart Failure, Adult (DC), Aspirin, Docusate, Furosemide, Lisinopril, Metoprolol Additional Instructions: FOLLOW UP WITH DR Maude BYRNE IN HIS OFFICE ----CALL FOR APPOINTMENT FOLLOW UP WITH DR MOORE IN HIS OFFICE----CALL FOR APPOINTMENT FOLLOW UP WITH DR MORALES IN HIS OFFICE ------CALL FOR APPOINTMENT CONTINUE HOME MEDICATION NEW PRESCRIPTION GIVEN LASIX 20 MG ON TAB BY MOUTH DAILY LISINOPRIL 2.5 MG ONE TAB BY MOUTH DAILY TROPOL XL 12.5 MG ONE TAB BY MOUTH DAILY ASPIRIN 81 MG ONE TAB BY MOUTH DAILY COLACE 100 MG BY MOUTH THREE TIMES A DAY ACTIVITY TOLERATED LIFEVEST NEED TO BE WEAR AT ALL TIME PER AUTOMATIC TYPEWRITER INSPECTOR DR KILGORE OR GO TO THE EMERGENCY ROOM IF SYMPTOM RETURN OR WORSENING Referrals: Kane Morales MD [Staff Provider] - Kam Moore MD [Staff Provider] - Catarina Baum MD [Staff Provider] - Jesus Manuel Landaverde MD [Staff Provider] -
== END 2018-12-05 17:58 | disposition home or self-care (01) | DRG 286 ==
LOC: C.ER 13:11 → C.9E 15:51 → C.6T 17:47
PROVIDERS: ADMIT Internal Medicine Critical Care Medicine; ATTEND Internal Medicine Critical Care Medicine
PROC: 4A023N7 Measurement of Cardiac Sampling and Pressure, Left Heart, Percutaneous Approach (ICD-10-PCS; principal; 2018-12-01)
PROC: B2151ZZ Fluoroscopy of Left Heart using Low Osmolar Contrast (ICD-10-PCS; 2018-12-01)
PROC: B2111ZZ Fluoroscopy of Multiple Coronary Arteries using Low Osmolar Contrast (ICD-10-PCS; 2018-12-01)
DX: I50.21 Acute systolic (congestive) heart failure (principal); I40.0 Infective myocarditis; I42.0 Dilated cardiomyopathy; E03.9 Hypothyroidism, unspecified; B97.89 Other viral agents as the cause of diseases classified elsewhere; I44.7 Left bundle-branch block, unspecified; Z79.82 Long term (current) use of aspirin; Z79.899 Other long term (current) drug therapy; Z82.49 Family history of ischemic heart disease and other diseases of the circulatory system